=== PATIENT | female | born 1960 | race Caucasian/White ===

== ENCOUNTER 2019-03-22 16:53 | Observation (INO) | payer BC ==
[2019-03-22] MEDS ORDERED: METOPROLOL TARTRATE 5 MG/5 ML INJ IV ONE (17:25)
[2019-03-22] MEDS ORDERED: LORazepam 2 MG/ML VIAL ONE (17:25)
[2019-03-22 17:34] LABS: Absolute Lymphocytes (CBC) 4.2 K/uL (0.7-4.9); Absolute Monocytes 0.9 K/uL (0.1-1.3); Absolute Neutrophil 5.4 K/uL (1.8-8.0); Basophils % 0.3 % (0-1.3); Hematocrit 43.3 % (36.0-45.0); Lymphocytes % 39.1 % (15.3-44.8); MPV 8.2 fL (7.6-11.3); Monocytes % 8.9 % (3.3-12.3); RBC Red Blood Cell Count 4.46 M/uL (3.86-4.86)
[2019-03-22 17:35] LABS: Protime INR 0.89
[2019-03-22 17:36] LABS: Barbiturates NEGATIVE (NEGATIVE); Benzodiazepines NEGATIVE (NEGATIVE); Cocaine NEGATIVE (NEGATIVE); METHAMPHETAM NEGATIVE (NEGATIVE); Methadone NEGATIVE (NEGATIVE); Opiates NEGATIVE (NEGATIVE); Phencyclidine NEGATIVE (NEGATIVE); THC Cannibis NEGATIVE (NEGATIVE)
--- NOTE | 2019-03-22 17:37 | RAD REPORT ---
EXAM DESCRIPTION: RAD - Chest Single View - 03/22/2019 5:26 pm CLINICAL HISTORY: Chest pain, possible aspiration COMPARISON: None. TECHNIQUE: AP portable chest image was obtained 1721 hours . FINDINGS: No focal lung parenchymal process. No failure or volume overload. Interstitial markings ar e mildly prominent suspected to be baseline. Heart and vasculature are normal. No measurable pleural effusion and no pneumothorax. No acute bony abnormality seen. No acute aortic findings suspected. IMPRESSION: No acute cardiopulmonary process.
--- NOTE | 2019-03-22 17:46 | EKG ---
Test Date: 2019-03-22 Test Time: 17:04:03 Yard Specialist: KVNG MEASUREMENT RESULTS: Intervals: Rate: 101 [place]: QRSD: 92 QT: 358 QTc: 464 [place]: P: [place]: QRS: 37 T: 43 INTERPRETIVE STATEMENTS: Atrial fibrillation with rapid ventricular response Nonspecific ST abnormality Abnormal ECG No previous ECG available for comparison Electronically Signed On 03-22-19 17:46:19 CDT by Alexandro Miguel
[2019-03-22 18:10] LABS: ALT/SGPT 35 U/L (12-78); AST/SGOT 31 U/L (15-37); Albumin 4.1 g/dL (3.4-5.0); Alkaline Phosphatase 93 U/L (45-117); BUN Blood Urea Nitrogen 18 mg/dL (7-18); Bicarbonate 21 mmol/L (21-32); Bilirubin Total 0.9 mg/dL (0.2-1.0); Glucose Level 106 mg/dL (74-106); NT PRO-BNP 54 pg/mL (<125); Potassium 3.3 mmol/L (3.5-5.1); Protein, Total 8.3 g/dL (6.4-8.2); Sodium Level 140 mmol/L (136-145); Troponin (Emerg Dept Use Only) < 0.02 ng/mL (0.0-0.045)
[2019-03-22 18:20] LABS: Urine Blood TRACE (NEG); Urine Glucose NEGATIVE (NEG); Urine Protein 1+ (NEG); Urine Specific Gravity 1.015 (1.005-1.030)
--- NOTE | 2019-03-22 18:58 | EDPHYS ---
Physician Documentation [facility] Name: Etelvina Ellsworth Age: 58 yrs Sex: Female : 1960 Arrival Date: 03/22/2019 Time: 16:55 Bed 8 Private MD: ED Physician Tima Sharma HPI: 03/22 17:16 This 58 yrs old Female presents to ER via Wheelchair with complaints of ps1 Palpitations. 17:16 patient states that she was cooking dinner and may have aspirated some of the broth. ps1 She then started coughing and then noticed that she was in atrial fibrillation. She has paroxysmal AF and is on 240mg diltiazem qd. She states that she has not had a known episode of AF for several years. States that she is now having a panic attack 2/2 situation. Does not have a local physician as they are back and forth between [place]. She was supposed to have an appointment today but was unable 2/2 insurance issue. Patient denies CP at this time but can still feel the palpitations. . Historical: - Allergies: 17:02 No Known Allergies; aj1 - Home Meds: 17:02 Diltiazem Oral [Active]; aj1 - PMHx: 17:02 Atrial Fib; aj1 - PSHx: 17:02 None; aj1 - Immunization history:: Flu vaccine is up to date. - Social history:: Smoking status: Patient uses tobacco products, smokes one-half pack cigarettes per day. - Ebola Screening: : Patient denies travel to an Ebola-affected area in the 21 days before illness onset. ROS: 17:16 Constitutional: Negative for fever, chills, and weight loss, Eyes: Negative for injury, ps1 pain, redness, and discharge, ENT: Negative for injury, pain, and discharge, Neck: Negative for injury, pain, and swelling, Respiratory: Negative for shortness of breath, cough, wheezing, and pleuritic chest pain, Abdomen/GI: Negative for abdominal pain, nausea, vomiting, diarrhea, and constipation, MS/Extremity: Negative for injury and deformity, Skin: Negative for injury, rash, and discoloration, Neuro: Negative for headache, weakness, numbness, tingling, and seizure. 17:16 Cardiovascular: Positive for palpitations. 17:16 Psych: Positive for anxiety. Exam: 17:16 Constitutional: This is a well developed, well nourished patient who is awake, alert, ps1 and in no acute distress. Head/Face: Normocephalic, atraumatic. Eyes: Pupils equal round and reactive to light, extra-ocular motions intact. Lids and lashes normal. Conjunctiva and sclera are non-icteric and not injected. Chest/axilla: Normal chest wall appearance and motion. Nontender with no deformity. No lesions are appreciated. Respiratory: Lungs have equal breath sounds bilaterally, clear to auscultation and percussion. No rales, rhonchi or wheezes noted. No increased work of breathing, no retractions or nasal flaring. Abdomen/GI: Soft, non-tender, with normal bowel sounds. No distension or tympany. No guarding or rebound. No evidence of tenderness throughout. MS/ Extremity: Pulses equal, no cyanosis. Neurovascular intact. Full, normal range of motion. Neuro: Awake and alert, GCS 15, oriented to person, place, time, and situation. Cranial nerves II-XII grossly intact. Sensory grossly intact. 17:16 Cardiovascular: Rate: tachycardic, Rhythm: irregularly irregular, Pulses: no pulse deficits are appreciated. Vital Signs: 17:02 BP 168 / 108; Pulse 112; Resp 20; Pulse Ox 100% on R/A; Weight 81.65 kg (R); Height 5 aj1 ft. 6 in. (167.64 cm) (R); Pain 0/10; 17:02 Temp 98.2(O); tw2 17:25 BP 154 / 96; Pulse 81; Resp 17; Pulse Ox 96% on R/A; tw2 17:33 BP 124 / 81; Pulse 73; Resp 16; Pulse Ox 95% on R/A; tw2 17:35 BP 124 / 81; Pulse 68; Resp 12; Pulse Ox 95% on R/A; tw2 17:56 BP 126 / 88; Pulse 60; Resp 13; Pulse Ox 95% on R/A; tw2 18:47 BP 116 / 82; Pulse 64; Resp 15; Pulse Ox 96% on R/A; tw2 19:19 BP 130 / 86; Pulse 80; Resp 16; Pulse Ox 95% on R/A; Pain 0/10; aa1 19:51 BP 131 / 88; Pulse 75; Resp 18; Temp 98.1(O); Pulse Ox 95% on R/A; Pain 0/10; aa1 17:02 Body Mass Index 29.05 (81.65 kg, 167.64 cm) aj1 MDM: 17:04 Data reviewed: vital signs, nurses notes. ps1 17:16 Patient medically screened. ps1 17:23 ED course: . ps1 03/22 17:04 Order name: CBC with Diff ps1 03/22 17:04 Order name: Magnesium; Complete Time: 18:24 ps1 03/22 17:04 Order name: NT PRO-BNP; Complete Time: 18:24 ps1 03/22 17:04 Order name: PT-INR; Complete Time: 17:43 ps1 03/22 17:04 Order name: Troponin (emerg Dept Use Only); Complete Time: 18:24 ps1 03/22 17:04 Order name: CMP; Complete Time: 18:24 ps1 03/22 17:04 Order name: XRAY Chest (1 view); Complete Time: 17:43 [facility] 03/22 17:04 Order name: UDS; Complete Time: 17:43 [facility] 03/22 17:05 Order name: CBC with Automated Diff; Complete Time: 17:43 [facility] 03/22 17:27 Order name: Urine Dipstick--Ancillary (enter results); Complete Time: 18:24 em1 03/22 19:15 Order name: Echo with Doppler [facility] 03/22 19:15 Order name: Troponin I [facility] 03/22 17:04 Order name: EKG; Complete Time: 17:05 [facility] 03/22 17:04 Order name: Cardiac monitoring; Complete Time: 17:32 [facility] 03/22 17:04 Order name: EKG - Nurse/Tech; Complete Time: 17:32 ps1 03/22 17:04 Order name: IV Saline Lock; Complete Time: 17:20 ps1 03/22 17:04 Order name: Labs collected and sent; Complete Time: 17:20 ps1 03/22 17:04 Order name: O2 Per Protocol; Complete Time: 17:11 ps1 03/22 17:04 Order name: O2 Sat Monitoring; Complete Time: 17:11 ps1 03/22 19:14 Order name: CONS Physician Consult [facility] 03/22 19:15 Order name: EKG Electrocardiogram [facility] EC:04 Rate is 101 beats/min. Rhythm is irregularly irregular. QRS [place] is Normal. QRS ps1 interval is normal. QT interval is normal. No Q waves. T waves are Normal. No ST changes noted. Clinical impression: Atrial fibrillation with rapid ventricular response. Interpreted by me. Administered Medications: 17:15 Drug: Ativan 0.5 mg Route: IVP; Site: right antecubital; tw2 18:48 Follow up: Response: No adverse reaction; Marked relief of symptoms tw2 17:24 Drug: Metoprolol 5 mg Route: IVP; Site: right antecubital; tw2 17:33 Follow up: BP 124 / 81; Pulse 73 bpm; Resp 16 bpm; Pulse Ox 95% RA tw2 Disposition: 03/22/19 18:57 Hospitalization ordered by Aminta Allen for Observation. Preliminary diagnosis is Paroxysmal atrial fibrillation. - Bed requested for Telemetry/MedSurg (Inpatient). - Status is Observation. aa1 - Condition is Stable. - Problem is an acute exacerbation. - Symptoms have improved. UTI on Admission? No Critical care time excluding procedures: 17:04 Critical care time: Bedside Care: 35 minutes. Total time: 35 minutes ps1 Signatures: Dispatcher [employer] EDBisi Casey RN RN aj1 Rachael Wynn RN RN aa1 Emmie Hernandez RN RN cg Stephanie Ridley RN RN tw2 Tima Sharma MD MD ps1 Corrections: (The following items were deleted from the chart) 19:37 18:57 Hospitalization Ordered by Aminta Allen MD for Observation. Preliminary cg diagnosis is Paroxysmal atrial fibrillation. Bed requested for Telemetry/MedSurg (Inpatient). Status is Observation. Condition is Stable. Problem is an acute exacerbation. Symptoms have improved. UTI on Admission? No. ps1 20:20 19:37 03/22/2019 18:57 Hospitalization Ordered by Aminta Allen MD for Observation. aa1 Preliminary diagnosis is Paroxysmal atrial fibrillation. Bed requested for Telemetry/MedSurg (Inpatient). Status is Observation. Condition is Stable. Problem is an acute exacerbation. Symptoms have improved. UTI on Admission? No. cg
--- NOTE | 2019-03-22 18:58 | ER ---
Nurse's Notes [facility] Name: Etelvina Ellwsorth Age: 58 yrs Sex: Female : 1960 Arrival Date: 03/22/2019 Time: 16:55 Bed 8 Private MD: Diagnosis: Paroxysmal atrial fibrillation Presentation: 03/22 17:00 Presenting complaint: Patient states: She was choked on something while she was eating aj1 and after that she started having palpitations and anxiety, reports that she had an episode of AFib previously and this felt the same. Transition of care: patient was not received from another setting of care. Onset of symptoms was March 22, 2019 at 16:14. Risk Assessment: Do you want to hurt yourself or someone else? Patient reports no desire to harm self or others. Initial Sepsis Screen: Does the patient meet any 2 criteria? HR > 90 bpm. No. Patient's initial sepsis screen is negative. Does the patient have a suspected source of infection? No. Patient's initial sepsis screen is negative. Care prior to arrival: None. 17:00 Method Of Arrival: Wheelchair aj1 17:00 Acuity: RU 3 aj1 Triage Assessment: 17:02 General: Appears in no apparent distress. uncomfortable, Behavior is appropriate for aj1 age, anxious. Pain: Denies pain. Neuro: Level of Consciousness is awake, alert, obeys commands, Oriented to person, place, time, situation. Cardiovascular: Reports palpitations, Denies chest pain, shortness of breath, Patient's skin is warm and dry. Respiratory: Airway is patent Respiratory effort is even, unlabored, Respiratory pattern is regular, symmetrical. Historical: - Allergies: 17:02 No Known Allergies; aj1 - Home Meds: 17:02 Diltiazem Oral [Active]; aj1 - PMHx: 17:02 Atrial Fib; aj1 - PSHx: 17:02 None; aj1 - Immunization history:: Flu vaccine is up to date. - Social history:: Smoking status: Patient uses tobacco products, smokes one-half pack cigarettes per day. - Ebola Screening: : Patient denies travel to an Ebola-affected area in the 21 days before illness onset. Screenin:26 Abuse screen: Denies threats or abuse. Nutritional screening: No deficits noted. tw2 Tuberculosis screening: No symptoms or risk factors identified. Fall Risk None identified. Assessment: 17:00 General: Appears in no apparent distress. Behavior is anxious. Pain: Denies pain. tw2 Neuro: Level of Consciousness is awake, alert, obeys commands, Oriented to person, place, time, situation. Cardiovascular: Reports palpitations, Heart tones S1 S2 Patient's skin is warm and dry. Respiratory: Airway is patent Respiratory effort is even, unlabored, Respiratory pattern is regular, symmetrical, Breath sounds are clear bilaterally. GI: No signs and/or symptoms were reported involving the gastrointestinal system. Abdomen is round non-distended, Bowel sounds present X 4 quads. : No signs and/or symptoms were reported regarding the genitourinary system. EENT: No signs and/or symptoms were reported regarding the EENT system. Derm: No signs and/or symptoms reported regarding the dermatologic system. Musculoskeletal: Range of motion: intact in all extremities. 17:58 Reassessment: Patient appears in no apparent distress at this time. Patient and/or tw2 family updated on plan of care and expected duration. Pain level reassessed. Patient is alert, oriented x 3, equal unlabored respirations, skin warm/dry/pink. Patient states feeling better. 18:48 Reassessment: Patient appears in no apparent distress at this time. Patient and/or tw2 family updated on plan of care and expected duration. Pain level reassessed. Patient is alert, oriented x 3, equal unlabored respirations, skin warm/dry/pink. Patient states feeling better. 19:18 Reassessment: Patient appears in no apparent distress at this time. Patient and/or aa1 family updated on plan of care and expected duration. Pain level reassessed. Patient is alert, oriented x 3, equal unlabored respirations, skin warm/dry/pink. Awaiting bed assignment for admission. 19:51 Reassessment: Patient appears in no apparent distress at this time. Patient is alert, aa1 oriented x 3, equal unlabored respirations, skin warm/dry/pink. Attempted to call report; nurse will call back shortly. 20:00 Reassessment: Report given to ZOË Barrios on 4th floor. aa1 Vital Signs: 17:02 BP 168 / 108; Pulse 112; Resp 20; Pulse Ox 100% on R/A; Weight 81.65 kg (R); Height 5 aj1 ft. 6 in. (167.64 cm) (R); Pain 0/10; 17:02 Temp 98.2(O); tw2 17:25 BP 154 / 96; Pulse 81; Resp 17; Pulse Ox 96% on R/A; tw2 17:33 BP 124 / 81; Pulse 73; Resp 16; Pulse Ox 95% on R/A; tw2 17:35 BP 124 / 81; Pulse 68; Resp 12; Pulse Ox 95% on R/A; tw2 17:56 BP 126 / 88; Pulse 60; Resp 13; Pulse Ox 95% on R/A; tw2 18:47 BP 116 / 82; Pulse 64; Resp 15; Pulse Ox 96% on R/A; tw2 19:19 BP 130 / 86; Pulse 80; Resp 16; Pulse Ox 95% on R/A; Pain 0/10; aa1 19:51 BP 131 / 88; Pulse 75; Resp 18; Temp 98.1(O); Pulse Ox 95% on R/A; Pain 0/10; aa1 17:02 Body Mass Index 29.05 (81.65 kg, 167.64 cm) aj1 ED Course: 16:55 Patient arrived in ED. mr 16:56 Tima Sharma MD is Attending Physician. ps1 16:56 Placed in gown. Bed in low position. Call light in reach. site monitor on. Pulse ox tw2 on. NIBP on. 17:01 Triage completed. aj1 17:02 Arm band placed on. aj1 17:04 EKG done, by optometric tech. reviewed by Tima Sharma MD. sm3 17:10 Stephanie Ridley RN is Primary Nurse. tw2 17:15 Inserted saline lock: 22 gauge in right antecubital area, using aseptic technique. tw2 Blood collected. 17:22 XRAY Chest (1 view) In Process Unspecified. EDMS 18:57 Aminta Allen MD is Hospitalizing Provider. ps1 18:59 Report given to ZOË Dash. tw2 19:50 No provider procedures requiring assistance completed. Patient admitted, IV remains in aa1 place. Administered Medications: 17:15 Drug: Ativan 0.5 mg Route: IVP; Site: right antecubital; tw2 18:48 Follow up: Response: No adverse reaction; Marked relief of symptoms tw2 17:24 Drug: Metoprolol 5 mg Route: IVP; Site: right antecubital; tw2 17:33 Follow up: BP 124 / 81; Pulse 73 bpm; Resp 16 bpm; Pulse Ox 95% RA tw2 Outcome: 18:57 Decision to Hospitalize by Provider. ps1 20:11 Admitted to Tele accompanied by tech, family with patient, via wheelchair, room 408, aa1 with chart, Report called to ZOË Barrios 20:11 Condition: stable 20:11 Instructed on the need for admit, Demonstrated understanding of instructions. 20:20 Patient left the ED. aa1 Signatures: Dispatcher [employer] EDBisi Casey RN RN aj1 Rachael Wynn RN RN aa1 Laury Jerez Tara, RN RN tw2 Tima Sharma MD MD ps1 Makenna Savage3
[2019-03-22] MEDS ORDERED: ONDANSETRON 4 MG/2 ML VIAL IV PRN (19:07)
[2019-03-22] MEDS ORDERED: NA CHLORIDE 0.9% 1,000 ML IV SCH (20:00)
[2019-03-22 20:56] VITALS: O2SAT 95
[2019-03-22] MEDS ORDERED: ENOXAPARIN 100 MG/ML SYR SQ SCH (21:00)
[2019-03-22 21:15] VITALS: BMI 29.3
[2019-03-22] MEDS ORDERED: LORazepam 2 MG/ML VIAL IV ONE (21:42)
[2019-03-22] MEDS: ENOXAPARIN 80 MG/0.8 ML SQ SCH (22:14)
[2019-03-23 05:55] LABS: Absolute Lymphocytes (CBC) 2.6 K/uL (0.7-4.9); Absolute Monocytes 0.5 K/uL (0.1-1.3); Absolute Neutrophil 3.6 K/uL (1.8-8.0); Basophils % 0.9 % (0-1.3); Eosinophils % 1.7 % (0-4.4); Hematocrit 38.8 % (36.0-45.0); MPV 8.4 fL (7.6-11.3); Monocytes % 7.8 % (3.3-12.3); RBC Red Blood Cell Count 4.07 M/uL (3.86-4.86)
[2019-03-23 05:59] LABS: Protime INR 0.99
[2019-03-23 06:11] LABS: ALT/SGPT 31 U/L (12-78); AST/SGOT 24 U/L (15-37); Albumin 3.7 g/dL (3.4-5.0); Alkaline Phosphatase 80 U/L (45-117); BUN Blood Urea Nitrogen 11 mg/dL (7-18); Bicarbonate 24 mmol/L (21-32); Bilirubin Total 0.9 mg/dL (0.2-1.0); Glucose Level 100 mg/dL (74-106); HDL Cholesterol 52 mg/dL (40-60); LDL Cholesterol, Calculated ND (<130); Magnesium 2.1 mg/dL (1.8-2.4); Potassium 3.4 mmol/L (3.5-5.1); Protein, Total 7.2 g/dL (6.4-8.2); Sodium Level 140 mmol/L (136-145)
[2019-03-23] MEDS ORDERED: POTASSIUM 25 MEQ EFFERV TAB PO ONE (06:22)
[2019-03-23 06:25] LABS: LDL, Direct 114 mg/dL (100-129)
[2019-03-23] MEDS: ENOXAPARIN 80 MG/0.8 ML SQ SCH (10:00)
[2019-03-23 11:35] VITALS: BP 139/91; TEMP 97.8
--- NOTE | 2019-03-23 12:20 | P.HP ---
Certification for Inpatient Patient admitted to: Observation With expected LOS: <2 Midnights Patient will require the following post-hospital care: None Practitioner: I am a practitioner with admitting privileges, knowledge of patient current condition, hospital course, and medical plan of care. Services: Services provided to patient in accordance with Admission requirements found in Title 42 Section 412.3 of the Code of Federal Regulations Patient History Date of Service: 03/22/19 Reason for admission: Atrial fibrillation with RVR History of Present Illness: The patient is a 58-year-old female who has a history of atrial fibrillation. She takes Cardizem normally for it. She came to the hospital with complaints of palpitations. She was seen in the emergency room she was found to be in atrial fibrillation with rapid ventricular response. She was given a dose for Cardizem but remained AFib. We went ahead and admitted her to the hospital for further treatment. In the hospital she got a dose of a beta-johnnie and she converted to a sinus rhythm. At this time we have an echocardiogram and Cardiology consultation pending in the morning. Anticipate discharge home in the morning. Allergies No Known Allergies Allergy (Verified 03/22/19 19:49) Home Medications: Aspirin [Aspir-Low] 81 mg PO DAILY 03/22/19 Diltiazem HCl [Diltiazem 24Hr ER] 240 mg PO DAILY 03/22/19 Fluoxetine HCl [Prozac*] 10 mg PO DAILY 03/22/19 Multivitamin [One-Daily Multi-Vitamin] 1 tab PO DAILY 03/22/19 Rosuvastatin [Crestor*] 20 mg PO BEDTIME 03/22/19 - Past Medical/Surgical History Has patient received pneumonia vaccine in the past: No Diabetic: No -: AFIB -: Ovarian CA -: anxiety -: ovarian ca sx - Family History Father Family History: Reviewed- Non-Contributory - Social History Smoking Status: Current every day smoker Alcohol use: Yes CD- Drugs: No Caffeine use: Yes Place of Residence: Home Review of Systems 10-point ROS is otherwise unremarkable Physical Examination - Vital Signs Temperature: 97.8 F Blood Pressure: 139/91 Pulse: 71 Respirations: 18 Pulse Ox (%): 95 - Physical Exam General: Alert, In no apparent distress, Oriented x3 HEENT: Atraumatic, PERRLA, Mucous membr. moist/pink, EOMI, Sclerae nonicteric Neck: Supple, 2+ carotid pulse no bruit, No LAD, Without JVD or thyroid abnormality Respiratory: Clear to auscultation bilaterally, Normal air movement Cardiovascular: Regular rate/rhythm, Normal S1 S2, No murmurs Gastrointestinal: Normal bowel sounds, Soft and benign, Non-distended, No tenderness Musculoskeletal: No clubbing, No swelling, No tenderness Integumentary: No rashes Neurological: Normal gait, Normal speech, Normal strength at 5/5 x4 extr, Normal tone, Sensation intact, Cranial nerves 3-12 intact, Normal affect Lymphatics: No axilla or inguinal lymphadenopathy - Studies Laboratory Data (last 24 hrs) 03/22/19 17:15: PT 10.6, INR 0.89 03/22/19 17:15: Sodium 140, Potassium 3.3 L, BUN 18, Creatinine 0.74, Glucose 106, Magnesium 2.0, Total Bilirubin 0.9, AST 31, ALT 35, Alkaline Phosphatase 93 03/22/19 17:15: WBC 10.7, Hgb 14.6, Hct 43.3, Plt Count 266 Assessment & Plan - Problems (Diagnosis) (1) Atrial fibrillation with rapid ventricular response Status: Acute - Plan 1. Will continue medications for rate control and anticoagulation 2. Continue with strict blood pressure control 3. Echocardiogram 4. Cardiology consultation 5. GI and DVT prophylaxis Discharge Plan: Home Plan to discharge in: 24 Hours - Advance Directives Does patient have a Living Will: No Does patient have a Durable POA for Healthcare: No - Code Status/Comfort Care Code Status Assessed: Yes Code Status: Full Code Critical Care: No Time Spent Managing PTS Care (In Minutes): 45
--- NOTE | 2019-03-23 12:37 | P.DS ---
Discharge Date: 03/23/19 Disposition: ROUTINE DISCHARGE Discharge Condition: GOOD Reason for Admission: Atrial fibrillation with RVR - Problems (1) Atrial fibrillation with rapid ventricular response Status: Acute Brief History of Present Illness: The patient is a 58-year-old female who has a history of atrial fibrillation. She takes Cardizem normally for it. She came to the hospital with complaints of palpitations. She was seen in the emergency room she was found to be in atrial fibrillation with rapid ventricular response. She was given a dose for Cardizem but remained AFib. We went ahead and admitted her to the hospital for further treatment. In the hospital she got a dose of a beta-johnnie and she converted to a sinus rhythm. At this time we have an echocardiogram and Cardiology consultation pending in the morning. Anticipate discharge home in the morning. Hospital Course: Patient converted to a sinus rhythm. Patient is clinically stable. At this time patient is stable for discharge home with outpatient follow-up with cardiology. Vital Signs/Physical Exam: Temp Pulse Resp BP Pulse Ox 97.8 F 71 18 139/91 H 95 03/23/19 12:35 03/23/19 12:35 03/23/19 12:35 03/23/19 12:35 03/23/19 12:35 General: Alert, In no apparent distress, Oriented x3 Laboratory Data at Discharge: WBC 7.0 K/uL (4.3-10.9) D 03/23/19 05:34 Hgb 13.6 g/dL (12.0-15.0) 03/23/19 05:34 Hct 38.8 % (36.0-45.0) 03/23/19 05:34 Plt Count 260 K/uL (152-406) 03/23/19 05:34 PT 11.7 SECONDS (9.5-12.5) 03/23/19 05:34 INR 0.99 03/23/19 05:34 APTT 36.5 SECONDS (24.3-36.9) 03/23/19 05:34 Sodium 140 mmol/L (136-145) 03/23/19 05:34 Potassium 3.4 mmol/L (3.5-5.1) L 03/23/19 05:34 BUN 11 mg/dL (7-18) 03/23/19 05:34 Creatinine 0.55 mg/dL (0.55-1.3) 03/23/19 05:34 Glucose 100 mg/dL (74-106) 03/23/19 05:34 Phosphorus 3.0 mg/dL (2.5-4.9) 03/23/19 05:34 Magnesium 2.1 mg/dL (1.8-2.4) 03/23/19 05:34 Total Bilirubin 0.9 mg/dL (0.2-1.0) 03/23/19 05:34 AST 24 U/L (15-37) 03/23/19 05:34 ALT 31 U/L (12-78) 03/23/19 05:34 Alkaline Phosphatase 80 U/L (45-117) 03/23/19 05:34 Troponin I < 0.02 ng/mL (0.0-0.045) 03/23/19 05:34 Triglycerides 506 mg/dL (<150) H 03/23/19 05:34 Cholesterol 227 mg/dL (<200) H 03/23/19 05:34 LDL Cholesterol Direct 114 mg/dL (100-129) 03/23/19 05:34 HDL Cholesterol 52 mg/dL (40-60) 03/23/19 05:34 Cholesterol/HDL Ratio 4.37 03/23/19 05:34 Home Medications: Aspirin [Aspir-Low] 81 mg PO DAILY 03/22/19 Diltiazem HCl [Diltiazem 24Hr ER] 240 mg PO DAILY 03/22/19 Fluoxetine HCl [Prozac*] 10 mg PO DAILY 03/22/19 Multivitamin [One-Daily Multi-Vitamin] 1 tab PO DAILY 03/22/19 Rosuvastatin [Crestor*] 20 mg PO BEDTIME 03/22/19 Patient Discharge Instructions: OK TO DC IV AND DC HOME IF OK WITH CARDIOLOGY. FOLLOW-UP WITH PRIMARY CARE PROVIDER IN 1-2 WEEKS. FOLLOW-UP WITH CARDIOLOGY IN 1-2 WEEKS. RETURN TO THE ER IF SYMPTOMS WORSENS. CALL DR. MCCARTNEY AT IF ANY QUESTIONS REGARDING HOSPITAL STAY. PLEASE CALL THE FLOOR AT IF ANY MEDICATION OR NURSING QUESTIONS. Diet: AHA Activity: Fall precautions Followup: Alexandro Miguel MD [ACTIVE - CAN ADMIT] - (1-2 weeks) Time spent managing pt's care (in minutes): 25
--- NOTE | 2019-03-23 15:20 | CON ---
Chief Complaint: Heart racing. Admission Diagnosis: Atrial fibrillation. History Of Present Illness: Ms. Ellsworth had her second episode of atrial fibrillation in her life. H er first one was 5 years ago. She came to the ER. She was in atrial fibrillation with rapid respons e, reverted to sinus rhythm without any particular interventions and now feels fine. She had a danay p when she first had it in [place]. She opted not to be on anticoagulant and has been on aspirin jerica ne since then and diltiazem. She also takes rosuvastatin. She is nontobacco user, non-alcohol user. Does not have diabetes. No history of stroke, myocardial infarction, or any vascular intervention. So, she has a CHADS-VASc score of 1 and opted to stay on aspirin and not take direct oral anticoagu lant. Past medical history otherwise unremarkable. Physical Examination: Vital Signs: 5 feet 6 inches. 182 pounds. Blood pressure 136/77, heart rate 77. General: Alert, oriented, pleasant, not in distress. Appears to be her stated age. HEENT: Normal. Lungs: Clear. Cardiac: Normal. Abdomen: Soft. Extremities: Normal. My recommendation is that the patient be allowed to go home. She can do an outpatient echo. She lincoln uld continue diltiazem and aspirin. If atrial fibrillation becomes more common than once every 5 yea rs, we will consider other antiarrhythmic drugs or oral anticoagulation at that time. She plans to f ollow up with me or Dr. Villa in the office. She is a recent immigrant to [place] having lived in [place] before. MARIA T/BRIT Voice ID: [id number] Report ID: [id number]
--- NOTE | 2019-03-24 16:34 | EKG ---
Test Date: 2019-03-22 Test Time: 23:49:29 Form Block Maker: RT MEASUREMENT RESULTS: Intervals: Rate: 68 ME: 228 QRSD: 94 QT: 420 QTc: 446 [place]: P: 55 ME: 228 QRS: 50 T: 53 INTERPRETIVE STATEMENTS: Sinus rhythm with 1st degree AV block Possible Left atrial enlargement Borderline ECG Compared to ECG 03/22/2019 17:04:03 First degree AV block now present Atrial fibrillation no longer present ST (T wave) deviation no longer present Electronically Signed On 03-24-19 16:33:17 CDT by Alexandro Miguel
== END 2019-03-23 11:48 | disposition home or self-care (01) ==
LOC: ER 16:53 → INTOOBSV 19:27 → ERHOLD 19:27 → 4TH 20:01
PROVIDERS: ADMIT Hospitalist; ATTEND Hospitalist
DX: I48.2 Chronic atrial fibrillation (principal); I44.0 Atrioventricular block, first degree; F41.9 Anxiety disorder, unspecified; F17.210 Nicotine dependence, cigarettes, uncomplicated; Z79.82 Long term (current) use of aspirin; Z79.899 Other long term (current) drug therapy; Z85.41 Personal history of malignant neoplasm of cervix uteri; Z85.43 Personal history of malignant neoplasm of ovary
CPT/HCPCS: 36415; 71045; 80053; 80061; 80307; 81003; 83735; 83880; 84100; 84484; 85025; 85610; 85730; 93005; 96374; 96375; 99285; G0378; J1650; J7030